=== PATIENT | male | born 1935 | race Caucasian/White ===

== ENCOUNTER 2018-09-18 05:51 | Inpatient (IN) | payer OTHER ==
[2018-09-18] MEDS ORDERED: ONDANSETRON 4 MG/2 ML VIAL IVP ONE (06:04)
[2018-09-18] MEDS ORDERED: NS 1,000 ML IV ONE (06:04)
[2018-09-18] MEDS ORDERED: HYDROmorphONE/DILAUDID 2 MG/ML INJ IVP ONE (06:14)
[2018-09-18] MEDS ORDERED: KETOROLAC 15 MG/1 ML SDV IVP ONE (06:14)
--- NOTE | 2018-09-18 06:19 | EDPHY ---
H & P <James Altman - Last Filed: 09/18/18 09:21> Stated Complaint: l flank pain Source: Patient Exam Limitations: No limitations - Personal History Current Tetanus/Diphtheria Vaccine: No Current Tetanus Diphtheria and Acellular Pertussis (TDAP): No - Medical/Surgical History Hx Asthma: No Hx Chronic Respiratory Disease: No Hx Diabetes: No Hx Cardiac Disease: No Hx Renal Disease: No Hx Cirrhosis: No Hx Alcoholism: No Hx HIV/AIDS: No Hx Splenectomy or Spleen Trauma: No Other PMH: kidney stones. appy - Social History Smoking Status: Never smoked <Jasmyne Salazar - Last Filed: 09/19/18 00:41> Time Seen by Provider: 09/18/18 06:04 HPI/ROS: HPI The patient presents with left-sided flank and left lower quadrant pain which began a few hours ago while at rest. Pain started slowly though has become more severe and is now rated as an 8/10. It is not associated with any dysuria or hematuria. It feels like his prior renal colic. He does have a history of right-sided ureterolithiasis about 1 month ago while in [place]. He had laser lithotripsy performed with good result and was told that his left kidney had stones as well. He has some nausea and vomiting. REVIEW OF SYSTEMS 10 systems were reviewed and negative with the exception of the elements mentioned in the history of present illness. PMHx: Prior renal colic right-sided, hyperlipidemia, status post appendicitis Soc Hx: Here with his PHYSICAL General Appearance: Alert, no distress Eyes: Pupils equal and round no pallor or injection ENT, Mouth: Mucous membranes moist Respiratory: There are no retractions, lungs are clear to auscultation Cardiovascular: Regular rate and rhythm Gastrointestinal: Abdomen is soft and left lower quadrant tenderness, mild left flank tenderness,, no masses, bowel sounds normal Neurological: A&O, moves all extremities Skin: Warm and dry, no rashes Musculoskeletal: Neck is supple non tender Extremities: symmetrical, full range of motion Psychiatric: Patient is oriented X 3, there is no agitation (Jasmyne Salazar) Constitutional: Initial Vital Signs Temperature (C) 36.4 C 09/18/18 05:57 Heart Rate 70 09/18/18 05:57 Respiratory Rate 18 09/18/18 05:57 Blood Pressure 208/95 H 09/18/18 05:57 O2 Sat (%) 97 09/18/18 05:57 O2 Delivery Mode Room Air Allergies/Adverse Reactions: No Known Allergies Allergy (Verified 09/18/18 08:13) Home Medications: Medication Instructions Recorded Acetaminophen [Tylenol ES 500 mg 1,000 mg PO Q6 PRN 09/18/18 (*)] Ascorbic Acid [Vitamin C 500 mg 500 mg PO DAILY 09/18/18 (*)] Aspirin [Aspirin 81mg (*)] 81 mg PO HS 09/18/18 Cholecalciferol Vit D3 [Vitamin D3 1,000 units PO DAILY 09/18/18 (*)] Cyanocobalamin [Vitamin B12 (*)] 1,000 mcg PO DAILY 09/18/18 Finasteride [Proscar 5 MG (*)] 5 mg PO DAILY 09/18/18 Herbals/Supplements -Info Only 1 ea PO DAILY 09/18/18 Lovastatin 20 mg PO HS 09/18/18 Tamsulosin HCl [Flomax 0.4 MG (*)] 0.4 mg PO HS 09/18/18 Medical Decision Making Consult/Admit Bed Type: Orellanageorgette Avalos 8am <James Altman - Last Filed: 09/18/18 09:21> - Diagnostics Imaging: Discussed imaging studies w/ call center trainer Radiologist <Jasmyne Salazar - Last Filed: 09/19/18 00:41> Differential Diagnosis: 83-year-old man with known nephrolithiasis presents with several hours of left- sided flank and left lower quadrant pain which began at rest and is associated with nausea and vomiting. Here, he is quite hypertensive, I suspect pain is a contributing factor, he has left-sided flank and left lower quadrant tenderness. Plan for IV fluids, Zofran, Toradol, Dilaudid. Will obtain basic labs including urinalysis and perform CT scan. Differential diagnosis includes ureterolithiasis, ruptured AAA, pyelonephritis. Patient CT scan demonstrates obstructive left-sided stones. UA raises suspicion for infection. Because of this, I feel he should be admitted to the hospital for further care. Dr Altman has discussed the case with the hospitalist Annmarie Orellana. (Jasmyne Salazar) Other Provider: Antibiotics and urine culture ordered by Dr. Salazar. Hospitalist and urologist consulted by myself, admission. Discussed with [facility] for urology at 817; will have [place] urology consult today , for obstructive uropathy and pyuria. (James Altman) - Data Points Laboratory Results: Laboratory Results 09/18/18 06:10 09/18/18 06:10 Medications Given: Ascorbic Acid (Vitamin C) 500 mg PO DAILY MOLLY Stop: 03/17/19 08:59 Last Admin: 09/18/18 10:10 Dose: 500 mg Aspirin (Aspirin) 81 mg PO HS MOLLY Stop: 03/17/19 20:59 Last Admin: 09/18/18 21:43 Dose: 81 mg Cholecalciferol (Vitamin D) 1,000 units PO DAILY MOLLY Stop: 03/17/19 08:59 Last Admin: 09/18/18 10:10 Dose: 1,000 units Finasteride (Proscar) 5 mg PO DAILY MOLLY Stop: 03/17/19 08:59 Last Admin: 09/18/18 10:10 Dose: 5 mg Ketorolac Tromethamine (Toradol) 15 mg IVP Q6HRS PRN PRN Reason: Pain, Breakthrough Stop: 09/23/18 11:59 Last Admin: 09/18/18 16:34 Dose: 15 mg Tamsulosin HCl (Flomax) 0.4 mg PO HS MOLLY Stop: 03/17/19 20:59 Last Admin: 09/18/18 21:42 Dose: 0.4 mg Vitamin B Complex (Vitamin B12) 1,000 mcg PO DAILY MOLLY Stop: 03/17/19 08:59 Last Admin: 09/18/18 10:10 Dose: 1,000 mcg Discontinued Medications Hydromorphone HCl (Dilaudid) 0.5 mg IVP EDNOW ONE Stop: 09/18/18 06:15 Last Admin: 09/18/18 06:17 Dose: 0.5 mg Sodium Chloride (Ns) 1,000 mls @ 0 mls/hr IV ONCE ONE; Wide Open PRN Reason: Protocol Stop: 09/18/18 06:05 Last Admin: 09/18/18 06:10 Dose: 1,000 mls Ceftriaxone Sodium/Dextrose (Rocephin 1 Gm (Premix)) 50 mls @ 100 mls/hr IV EDNOW ONE PRN Reason: Protocol Stop: 09/18/18 08:06 Last Admin: 09/18/18 08:10 Dose: 50 mls Dextrose/Sodium Chloride (D5w Ns) 1,000 mls @ 75 mls/hr IV CONT MOLLY Stop: 09/19/18 00:34 Last Admin: 09/18/18 12:37 Dose: 1,000 mls Ketorolac Tromethamine (Toradol) 15 mg IVP EDNOW ONE Stop: 09/18/18 06:15 Last Admin: 09/18/18 06:17 Dose: 15 mg Ondansetron HCl (Zofran) 4 mg IVP EDNOW ONE Stop: 09/18/18 06:05 Last Admin: 09/18/18 06:18 Dose: 4 mg Departure <James Altman - Last Filed: 09/18/18 09:21> <Jasmyne Salazar - Last Filed: 09/19/18 00:41> - Departure Disposition: [facility] Inpatient Acute Clinical Impression: Ureterolithiasis Urinary tract infection Qualifiers: Urinary tract infection type: site unspecified Hematuria presence: with hematuria Qualified Code(s): N39.0 - Urinary tract infection, site not specified Condition: Fair
[2018-09-18 06:43] LABS: PLATELET COUNT 175 10^3/uL (150-400)
[2018-09-18] MEDS ORDERED: ONDANSETRON 4 MG/2 ML VIAL IVP PRN (08:24)
[2018-09-18] MEDS ORDERED: ONDANSETRON DISINTEGRATING 4 MG TAB PO PRN (08:24)
[2018-09-18] MEDS ORDERED: Herbals/Supplements -Info Only PO SCH (09:00)
[2018-09-18] MEDS: FINASTERIDE 5 MG TAB PO SCH (10:10)
[2018-09-18] MEDS: CYANO/VITAMIN B12 1000 MCG TAB PO SCH (10:10)
[2018-09-18] MEDS: ASCORBIC ACID 500 MG TAB PO SCH (10:10)
[2018-09-18] MEDS: CHOLECALCIFEROL VIT D3 1,000 UNITS TAB PO SCH (10:10)
[2018-09-18] MEDS ORDERED: KETOROLAC 15 MG/1 ML SDV IVP PRN (10:26)
[2018-09-18] MEDS ORDERED: D5W NS 1,000 ML IV SCH (11:15)
--- NOTE | 2018-09-18 11:27 | GHP ---
[f rep st] HISTORY AND PHYSICAL DATE OF ADMISSION: 09/18/2018 CHIEF COMPLAINT: Left flank pain. HISTORY OF PRESENT ILLNESS: A pleasant 83-year-old male with hyperlipidemia and recent right-sided k idney stones that were removed by laser in [place]. He was down there vacationing in [facility]. Underwent the procedure with stent placement. He reports having a urinary infection at that time. They did inform him that he did have kidney stones on the left side, but did not warrant interventio n. This morning at 1 a.m. he developed crampy left flank pain with mild emesis. He denies fevers, chill s, or sweats. Reports mild dysuria. No diarrhea. CT showed multiple left ureteral stones causing r enal obstruction. REVIEW OF SYSTEMS: I completed a 10-point review of systems, negative except as noted in HPI. PAST MEDICAL HISTORY: Hyperlipidemia. PAST SURGICAL HISTORY: Appendectomy, recent laser removal of right kidney stones, and left rotator c uff surgery. SOCIAL HISTORY: Lives in [place] part-time and part-time in [facility]. . Occasional w ine. No tobacco or illicits. FAMILY HISTORY: Father with kidney and liver issues. ALLERGIES: None. HOME MEDICATIONS: 1. Herbal supplements. 2. Vitamin B12. 3. Vitamin D3. 4. Vitamin C. 5. Tylenol as needed. 6. Flomax. 7. Lovastatin 20 mg at bedtime. 8. Finasteride 5 mg. 9. Aspirin 81 mg. PHYSICAL EXAMINATION: VITAL SIGNS: Temperature 36.4, blood pressure 172/72, heart rate in the 60s, respirations 16, 92% on room air. GENERAL: He is well appearing, in no acute distress. HEENT: PER RLA. Moist mucous membranes. CV: Regular rate and rhythm. LUNGS: Clear. ABDOMEN: Soft, nontender , nondistended. : No River. No suprapubic or flank pain. Flank pain on my exam. NEUROLOGIC: 2 through 12 intact. PSYCH: Alert and oriented x3. LABORATORY DATA: WBC 5, hemoglobin 11, hematocrit 33, platelets 175. Sodium 140, potassium 4.6, chl oride 106, carbon dioxide 21, BUN 19, creatinine is 1.1 (baseline 0.9). UA: +3 leuk, [address] abdomen and pelvis: Multiple left ureteral stones causing renal obstruction. ASSESSMENT/PLAN: 1. Left ureteral stone causing obstruction. Dr. Farooq with Urology will evaluate. Will treat for c omplicated urinary tract infection with dysuria and stones. IV ceftriaxone. Urine culture pending. He is nontoxic. No evidence of sepsis. 2. Hyperlipidemia, statin. 3. Normocytic anemia. No evidence of bleeding. 4. DVT prophylaxis, SCDs. DISPOSITION: Observation admission, warranting IV fluids, antibiotics, awaiting urologic consultbrenneno doe Mcdaniel #: [id number]/[id number]
--- NOTE | 2018-09-18 14:12 | GCON ---
[f rep st] CONSULTATION DATE OF CONSULTATION: 09/18/2018 REASON FOR CONSULT: Ureteral stones. HPI: This is a pleasant 83-year-old male who presents with left-sided flank pain to the emergency ro om. He recently had right-sided kidney stones removed by what sounds like ureteroscopy in [place]. Dario york had a stent at that time, which has since been removed and reports an associated infection with the procedure and the stent. He also has a history of having kidney stones about 10-12 years ago that w ere historically treated by Dr. Ramos. Otherwise, he has a history of hyperlipidemia and known BPH. His symptoms began acutely this morning at 1 a.m. Left-sided pain that was crampy. Denying fever, chills, or sweats. Mild dysuria and CT shows 2-3 left ureteral stones with hydro. REVIEW OF SYSTEMS: 10-point review of systems negative except as mentioned in HPI. PAST MEDICAL HISTORY: Hyperlipidemia, BPH, kidney stones. SURGICAL HISTORY: Appendectomy, ureteroscopy, left rotator cuff. SOCIAL: Lives part-time in [place], part-time in [facility]. . Occasional wine. No to [employer]. Daughter is a nurse in [place]. FAMILY HISTORY: Father with kidney issues. ALLERGIES: None. HOME MEDICATIONS: Herbal supplements, B12, D3, C, Tylenol, Flomax, lovastatin, finasteride, aspirin. PHYSICAL EXAM: VITAL SIGNS: Blood pressure 138/71, heart rate 65, respirations 16, O2 93 on room ai r, temperature 36.4. GENERAL: This is a well-developed, well-nourished male, in no acute distress. HEENT: Normocephalic, atraumatic. Extraocular movements intact. NECK: Supple. No lymphadenopath y. Trachea midline. RESPIRATORY: No accessory respiratory muscle use. CARDIAC: Regular rate and rhythm. No obvious JVD. No lower extremity edema. GI: Abdomen is soft, nondistended, nontender to palpation. No hepatosplenomegaly. : No CVA tenderness. No bladder distention. Phallus with no rmal urethral meatus. Testicles descended bilaterally. Normal on exam. INTEGUMENT: No obvious colton hes or lesions. MUSCULOSKELETAL: Patient examined while supine but moving upper extremities and low er extremities without difficulty. NEUROLOGIC: Alert and oriented. PSYCH: Affect appropriate to s ituation. LABS: White blood cell count 5.29, hemoglobin 11.1, hematocrit 33.5, platelets 175. Chemistry: Sod ium 140, potassium 4.6, chloride 105, carbon dioxide 21, anion gap 14, BUN 19, creatinine 1.0, glucos e 165, calcium 9.4. Urinalysis was positive for blood, leuks, and nitrates. CT of the abdomen and p drew, I have reviewed this personally, which shows no stones on the right. No obvious hydronephrosi s. He has 2-3 stones in the left ureter, largest is a distal left ureteral stone measuring 11 x 7 mm with a possible 3 mm stone right superior to that left stone, and then a 5-1/2 x 4-1/2 mid left uret eral stone with moderate hydronephrosis. He also has an enlarged prostate. ASSESSMENT AND PLAN: Ureteral stones, hydronephrosis. I have discussed the diagnosis, along with th e possible management options with the patient, his and his daughter, which would include surgic al removal of stones, stenting, nephrostomy tube placement or observation. Given patient's robust ap pearance with normal vital signs and normal white blood cell count, we will continue with antibiotics right now for possible early urinary tract infection and plan for ureteroscopy to treat 2-3 stones t omorrow with stent placement. Risks and benefits have been discussed in detail with the patient and they agree for procedure. /[id number]/MODL
[2018-09-18] MEDS: TAMSULOSIN HCL 0.4 MG CAP PO SCH (21:42)
[2018-09-18] MEDS: ASPIRIN 81 MG CHEWABLE TAB PO SCH (21:43)
[2018-09-19] MEDS: PRAVASTATIN SODIUM 20 MG TAB PO SCH (08:40)
[2018-09-19] MEDS: FINASTERIDE 5 MG TAB PO SCH (08:40)
[2018-09-19] MEDS: ASCORBIC ACID 500 MG TAB PO SCH (08:42)
[2018-09-19] MEDS: CHOLECALCIFEROL VIT D3 1,000 UNITS TAB PO SCH (08:43)
[2018-09-19] MEDS: CYANO/VITAMIN B12 1000 MCG TAB PO SCH (08:43)
[2018-09-19] MEDS ORDERED: LR 1,000 ML IV ONE (09:11)
--- NOTE | 2018-09-19 09:38 | PDANEPAE ---
ANE History of Present Illness 83 year old with kidney stones ANE Past Medical History - Pulmonary History Hx Sleep Apnea: No Sleep Apnea Screening Result - Last Documented: Negative - Endocrine History Hx Diabetes: No ANE Review of Systems Review of systems is: negative Review of Systems: ANE Patient History - Allergies Allergies/Adverse Reactions: No Known Allergies Allergy (Verified 09/18/18 08:13) - Home Medications Home Medications: Acetaminophen [Tylenol ES 500 mg (*)] 1,000 mg PO Q6 PRN 09/18/18 [Last Taken ] Ascorbic Acid [Vitamin C 500 mg (*)] 500 mg PO DAILY 09/18/18 [Last Taken Unknown] Aspirin [Aspirin 81mg (*)] 81 mg PO HS 09/18/18 [Last Taken 09/17/18] Cholecalciferol Vit D3 [Vitamin D3 (*)] 1,000 units PO DAILY 09/18/18 [Last Taken Unknown] Cyanocobalamin [Vitamin B12 (*)] 1,000 mcg PO DAILY 09/18/18 [Last Taken Unknown ] Finasteride [Proscar 5 MG (*)] 5 mg PO DAILY 09/18/18 [Last Taken 09/17/18] Herbals/Supplements -Info Only 1 ea PO DAILY 09/18/18 [Last Taken Unknown] Lovastatin 20 mg PO HS 09/18/18 [Last Taken 09/17/18] Tamsulosin HCl [Flomax 0.4 MG (*)] 0.4 mg PO HS 09/18/18 [Last Taken 09/17/18] - NPO status NPO Since - Liquids (Date): 09/19/18 NPO Since - Liquids (Time): 00:00 NPO Since - Solids (Date): 09/19/18 NPO Since - Solids (Time): 00:00 - Anes Hx Anes Hx: no prior problems - Smoking Hx Smoking Status: Never smoked ANE Labs/Vital Signs - Labs Result Diagrams: 09/19/18 08:00 09/19/18 08:00 - Vital Signs Blood Pressure: 141/70 Heart Rate: 85 Respiratory Rate: 18 O2 Sat (%): 92 Height: 157.48 cm Weight: 58.967 kg ANE Physical Exam - Airway Neck exam: FROM Mallampati Score: Class 1 Mouth exam: normal dental/mouth exam - Pulmonary Pulmonary: no respiratory distress - Cardiovascular Cardiovascular: regular rate and rhythym - ASA Status ASA Status: II ANE Anesthesia Plan Anesthesia Plan: GA w LMA
--- NOTE | 2018-09-19 10:02 | ASMTCMCOM ---
CM Note CM Note Notes: Patient admitted for tx of L ureteral stone and UTI w dysuria. Per H&P, he recently underwent R sided kidney stone removal by laser in [place]. 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 I do not anticipate any d/c needs, but CM will follow in case he has a procedure that would necesitate a funeral home attendant. Date Signed: 09/19/2018 10:02 AM Electronically Signed By:Jennifer Anderson RN
[2018-09-19] MEDS ORDERED: LIDOCAINE 2% JELLY 20 ML (UROJECT) ONE (10:43)
[2018-09-19] MEDS ORDERED: IOPAMIDOL (ISOVUE-M 300) 15 ML VIAL ONE ×2 (10:43→12:05)
[2018-09-19] MEDS ORDERED: PROPOFOL 200 MG/20 ML VIAL ONE (11:28)
[2018-09-19] MEDS ORDERED: fentaNYL 100 MCG/2 ML INJ ONE ×3 (11:35→12:31)
--- NOTE | 2018-09-19 12:47 | POSTOPPROG ---
Post Op Note Date of Operation: 09/19/18 Surgeon: Yolette Willingham (# [id number]) Anesthesia: GET(General Endotracheal) Pre-op Diagnosis: Multiple left ureteral calculi Post-op Diagnosis: Multiple left ureteral calculi Procedure: Cysto, left ureteroscopy w/ laser litho., stent placement Findings: See op note Inf/Abcess present in the surg proc area at time of surgery?: No EBL: Minimal Complications: None Drains: Other (4.7 Fr. multilength left ureteral stent) Specimen(s): Left ureteral calculus fragments
[2018-09-19] MEDS ORDERED: HYDROmorphONE/DILAUDID 1 MG/ML INJ IVP PRN (12:56)
[2018-09-19] MEDS ORDERED: HYDROCODONE/APAP 5/325 TAB PO PRN (12:56)
[2018-09-19] MEDS ORDERED: fentaNYL 100 MCG/2 ML INJ IVP PRN (12:58)
[2018-09-19] MEDS ORDERED: NALOXONE HCL 0.4 MG/ML INJ IVP PRN (12:58)
[2018-09-19] MEDS ORDERED: ONDANSETRON 4 MG/2 ML VIAL IVP PRN (12:58)
[2018-09-19] MEDS ORDERED: PROMETHAZINE HCL 25 MG/ML INJ IVP PRN (12:58)
--- NOTE | 2018-09-19 13:00 | POSTANESTH ---
Post Anesthetic Evaluation Cardiovascular Status: Normal, Stable Respiratory Status: Normal, Stable Level of Consciousness/Mental Status: Can Participate in Eval Pain Control: Adequate, Prn Tx Ordered Nausea/Vomiting Control: Adequate, Prn Tx Ordered Complications Possibly Related to Anesthesia: None Noted
--- NOTE | 2018-09-19 15:07 | HOSPPROG ---
Hospitalist Progress Note Assessment/Plan: #Left Ureteral Stones -s/p stent 09/19 #UTI-Pseudomona -change abx to Zosyn, ID to consult -await sensitivities #Hydronephrosis -Cr ok #Anemia, macrocytic: w/u ordered #BPH: home meds #HLD: cont statin cont inpatient ID to see, likely tomorrow restart IVF Subjective: no cp or sob. no n/v Objective: Vital Signs Temp Pulse Resp BP Pulse Ox 36.9 C 76 16 120/64 96 09/19/18 13:51 09/19/18 13:51 09/19/18 13:51 09/19/18 13:51 09/19/18 13:51 Laboratory Results 09/19/18 08:00 09/19/18 08:00 09/18/18 09/19/18 09/20/18 05:59 05:59 05:59 Intake Total 1400 800 Output Total 1100 0 Balance 300 800 - Physical Exam Constitutional: no apparent distress Eyes: PERRL, EOMI Ears, Nose, Mouth, Throat: moist mucous membranes, hearing normal, ears appear normal Cardiovascular: regular rate and rhythym, No edema Respiratory: no respiratory distress, no rales or rhonchi, clear to auscultation Gastrointestinal: normoactive bowel sounds, No distension Skin: warm Neurologic: AAOx3 Psychiatric: interacting appropriately, not anxious, not encephalopathic Lymph, Heme, Immunologic: No petechiae ICD10 Worksheet Patient Problems: Problems Problem Status Onset Ureterolithiasis Acute Urinary tract infection Acute
[2018-09-19] MEDS: PIPERACILLIN/TAZO 4.5 GM/DEX 100 ML IV SCH ×2 (16:24→21:56)
[2018-09-19] MEDS: NS 1,000 ML IV SCH (16:24)
[2018-09-19] MEDS: ACETAMINOPHEN 325 MG TAB PO PRN ×2 (17:41→22:55)
[2018-09-19] MEDS ORDERED: PIPERACILLIN/TAZO 4.5 GM/DEX 100 ML IV SCH (18:00)
--- NOTE | 2018-09-19 19:41 | GOP ---
[f rep st] OPERATIVE REPORT DATE OF OPERATION: 09/19/2018 SURGEON: Yolette Willingham MD ANESTHESIA: Laryngeal mask. PREOPERATIVE DIAGNOSIS: 1. Multiple left ureteral calculi. 2. Urinary tract infection. POSTOPERATIVE DIAGNOSIS: 1. Multiple left ureteral calculi. 2. Urinary tract infection. PROCEDURES PERFORMED: Cystourethroscopy, left retrograde pyelography, left ureteroscopy with holmium laser lithotripsy & basket extraction of multiple calculi, left ureteral stent placement (4.7 Belarusian multilength). FINDINGS: Multiple large calculi in the distal left ureter with hydronephrosis proximally. No intraoperative evidence of overtly purulent urine from the left kidney nor left ureter. SPECIMENS: Left ureteral calculus fragments. ESTIMATED BLOOD LOSS: Minimal. INDICATIONS: This gentleman was admitted to the hospital recently with obstructing ureteral calculi and also a urinary tract infection. He has not exhibited any indication of sepsis during the hospitalization; therefore, I decided to proceed with intraoperative ureteroscopy. The indications for the procedures, as well as potential risks and complications, were discussed with the patient preoperatively. He appeared to understand, his questions were answered, and he wished to proceed. Written informed surgical consent was thereafter obtained. DESCRIPTION OF PROCEDURE: The patient was brought to the operating room and administered laryngeal mask anesthesia. He was carefully placed in the dorsal lithotomy position on the cystoscopic table. The genital area sterilely prepped with Betadine scrub and paint then draped in the usual sterile fashion. Cystoscopy was performed with 30-degree and 70-degree lenses through a 22- Belarusian sheath. Anterior urethra revealed no abnormalities. Posterior urethra revealed significant circumferential BPH with a prominent median lobe encroaching onto the trigone. The bladder was moderately to heavily trabeculated. Ureteral orifices were normal in regards to shape and position along the trigone. No other areas of abnormal erythema, tumors, nor foreign bodies were appreciated. I then used a 5-Belarusian open-ended ureteral catheter to intubate the left ureteral orifice. Upon doing so, I gently injected a small amount of contrast. Using fluorscopic guidance, there was significant J hooking of the distal ureter along with a large calculus in the distal ureter, with moderate proximal hydronephrosis and hydroureter. There were possibly 2 or 3 other calculi present in the distal ureter. I then gently passed a 0.035 inch hydrophilic guidewire through the ureteral catheter and advanced it into the renal collecting system as noted fluoroscopically. The ureteral catheter was then removed while keeping the guidewire in place. At this point, I did not appreciate any purulent material exiting from the left ureter; therefore, I felt it was safe to proceed with ureteroscopy. I dilated the distal ureter with a 4 cm balloon by maintaining a pressure of 16 atmospheres for about 4 minutes. The balloon dilator and cystoscope were then removed while keeping the guidewire in place. Semi-rigid ureteroscopy was performed alongside the guidewire. There were several calculi seen in the distal ureter, the largest being approximately 1 cm. I used a 365 micron holmium laser fiber to fragment these calculi into as small pieces as possible. None of the pieces at the end of the case appeared to be larger than 2 mm to 3 mm. I tried to extract as many of these as I could with a Nitinol 0 tip stone basket. There was a fair amount of inflammation and edema involving the distal left ureteral mucosa as a result of the calculi, and probably related to some degree from a possible overlying urinary tract infection. I decided to minimize any further manipulation of the ureter at this time, and there were some small stone fragments left behind, which I felt confident would drain around the indwelling ureteral stent. The ureteroscope was removed and the cystoscope was back-loaded over the guidewire. A 4.7-Belarusian multi length hydrophilic ureteral stent was advanced over the guidewire until it was properly positioned as seen fluoroscopically in the kidney and cystoscopically in the bladder. The bladder was then drained of all return, which was relatively clear. The instruments were removed. Because of the patient's large prostate, I decided to place an 18-Belarusian coude tip catheter. This was placed to gravity drainage without complication and connected to bag drainage. The patient was then awakened, transferred to his bed, then taken back to the recovery room. He tolerated the procedure well overall. COMPLICATIONS: None. DISPOSITION: He was transferred to the recovery room in stable condition. He will need to be monitored at least overnight to ensure he does not become septic following today's procedure. I will then have his River catheter removed in the morning as well. He will need to maintain his indwelling left ureteral stent for about 3 weeks, and I will have him return to the office at that time with a KUB. /[id number]/MODL MTDD
[2018-09-19] MEDS: ASPIRIN 81 MG CHEWABLE TAB PO SCH (21:55)
[2018-09-19] MEDS: TAMSULOSIN HCL 0.4 MG CAP PO SCH (21:56)
[2018-09-20] MEDS: PIPERACILLIN/TAZO 4.5 GM/DEX 100 ML IV SCH ×4 (04:01→22:18)
[2018-09-20 04:45] LABS: PLATELET COUNT 122 10^3/uL (150-400)
[2018-09-20] MEDS: CYANO/VITAMIN B12 1000 MCG TAB PO SCH (09:06)
[2018-09-20] MEDS: CHOLECALCIFEROL VIT D3 1,000 UNITS TAB PO SCH (09:06)
[2018-09-20] MEDS: ASCORBIC ACID 500 MG TAB PO SCH (09:06)
[2018-09-20] MEDS: FINASTERIDE 5 MG TAB PO SCH (09:06)
[2018-09-20] MEDS: PRAVASTATIN SODIUM 20 MG TAB PO SCH (09:06)
--- NOTE | 2018-09-20 09:10 | PDMN ---
Medical Necessity Medical necessity: Change to IP, as of 09/19/18, per & MCG M-320; los >2 mn for ongoing management of ureteral stones s/p stent w/UTI; requiring further monitoring, ID consult, IV abx & IVFs; comorbid advanced age
[2018-09-20] MEDS: ACETAMINOPHEN 325 MG TAB PO PRN ×2 (10:47→22:20)
--- NOTE | 2018-09-20 14:23 | HOSPPROG ---
Hospitalist Progress Note Assessment/Plan: #Left Ureteral Stones -s/p stent 09/19 #UTI-Pseudomonas -cont Zosyn -D/w ID, they will see today -await sensitivities #Hydronephrosis -Cr elevated -cont IVF #Anemia, macrocytic: w/u ordered #BPH: home meds #HLD: cont statin #Encephalopathy, acute, metabolic cont inpatient ID to see today cont IVF Subjective: fever last night, somewhat confused. knows he is in the hospital and why. Objective: Vital Signs Temp Pulse Resp BP Pulse Ox 37.7 C 91 16 119/57 L 89 L 09/20/18 11:20 09/20/18 11:20 09/20/18 11:20 09/20/18 11:20 09/20/18 11:20 Laboratory Results 09/20/18 04:20 09/20/18 04:20 09/19/18 09/20/18 09/21/18 05:59 05:59 05:59 Intake Total 1553 Output Total 1000 350 Balance 553 -350 - Physical Exam Constitutional: no apparent distress Eyes: PERRL Ears, Nose, Mouth, Throat: moist mucous membranes, hearing normal Cardiovascular: regular rate and rhythym, No edema Respiratory: no respiratory distress, no rales or rhonchi, clear to auscultation Gastrointestinal: normoactive bowel sounds, soft, non-tender abdomen Skin: warm Musculoskeletal: generalized weakness Neurologic: AAOx3 Psychiatric: interacting appropriately Lymph, Heme, Immunologic: No petechiae ICD10 Worksheet Patient Problems: Problems Problem Status Onset Ureterolithiasis Acute Urinary tract infection Acute
--- NOTE | 2018-09-20 15:06 | PDCONSULT ---
Hospice Director Note: Infectious Diseases Consult Note Impression: 83-year-old man with Pseudomonas aeruginosa urinary tract infection complicating multiple nephrolithiasis status post extraction. Continues to have some cognitive changes according to family with ongoing fevers. Will continue with piperacillin/tazobactam until susceptibilities return. His recent surgical procedure in [place] makes predicting susceptibilities difficult without knowing the antibiotic gram from facility had the procedure performed. 1. Pyelonephritis, secondary to Pseudomonas aeruginosa 2. Status post removal of left-sided ureteral stones 09/19/2018 3. BPH 4. Status post removal of right-sided kidney stones and [place] in 2019 5. Acute kidney injury, likely post procedure Plan: 1. Continue Zosyn 2. Follow susceptibility results expect by tomorrow 3. Will plan oral step-down therapy if an oral agent is active 4. Reviewed in detail potential side effects of beta-lactam antibiotics to include: allergy, rash, nausea, antibiotic-associated diarrhea, Clostridioides difficile colitis. Calvin Echavarria MD Infectious Diseases Chief Complaint: Kidney stones Requesting Provider: Dr. Rosales Reason for Referral: Consultation was requested by Dr. Rosales regarding antimicrobial management. HPI: 83-year-old man who presented to the emergency department with left-sided flank pain and left pelvic pain that began on the day of admission. Patient states that he had a planned procedure but family notes that his cognitive function has not returned to baseline. Medical record review shows that he presented with left-sided flank pain and left pelvic pain approximately 1 month after undergoing right-sided laser lithotripsy [place] for nephrolithiasis. He was told at the time that he did have stones on the left side but were not necessary to remove at that time. Since admission he has undergone urologic procedure to extract the large stones in the left ureter. Urine culture from admission has grown Pseudomonas aeruginosa with susceptibilities pending. Family notes that he was treated for urinary tract infection while he was in [place] but do not recall the details the bacteria or the antibiotic course. Since the procedure he states he is feeling better with no further flank or pelvic pain. He has had a fever while inpatient which he has manifested with diaphoresis and chills. Overall he feels much improved in his ambulating around his room as able to fully participate in a discussion, although his family states his cognitive function remains a bit delayed from his usual sharp mentation. Reviewed patient medical records in [facility], and [facility] ([facility] Travel history: Recent trip to [facility] Past Medical History: Recurrent nephrolithiasis Past Surgical History: Right-sided kidney stone with removal in [place]; ureteroscopy with stone removal 09/19/2018 Social History: Does not use tobacco products; Does not consume marijuana products; Drinks alcohol socially; Does not use any other drugs currently or in the past Family History: No family members with recurrent infections Allergies: No known antibiotic allergies Medications: Reviewed in medical record. ROS: 10 organ systems reviewed; pertinent positives and negatives listed in the HPI, all other organ systems negative. Physical Exam: VS: Reviewed Gen: No acute distress; Breathing comfortably without supplemental oxygen; Able to speak in complete sentences Eyes: No conjunctival injection; No scleral icterus HENT: No gross deformities Neck: No limitation in range of motion Pulm: Audible inspiratory sounds to the bases bilaterally; No wheeze, rhonchi, or rales CV: Normal S1 and S2; Regular rate and rhythm; No murmurs, rubs, or gallops; No lower extremity edema Abd: Not distended; Normo-active bowel sounds; Soft; Non-tender Skin: A full skin exam including exposed bilateral upper extremities, bilateral lower extremities to the knees, face, neck, abdomen, chest, and back performed; Skin intact, warm, with no rash MSK: Joints without erythema or edema; No gross limitation in range of motion Ext: No clubbing or cyanosis Neuro: Awake and alert; delayed responses to questions according to family Psych: Normal mood and affect Labs/Imaging: All microbiology testing (culture and non-culture) reviewed in the medical record. Personally reviewed and interpreted the images of the following radiographs: CT abdomen pelvis from admission showing multiple large left-sided ureteral stones. Medications Generic Name Dose Route Start Last Admin Trade Name Freq PRN Reason Stop Dose Admin Piperacillin/Tazobactam/Dextrose 100 mls @ 200 mls/hr 09/19/18 16:00 10:28 Zosyn (Premix) IV 10/19/18 15:59 100 mls Q6H MOLLY Protocol Discontinued Medications Generic Name Dose Route Start Last Admin Trade Name Freq PRN Reason Stop Dose Admin Piperacillin/Tazobactam/Dextrose 100 mls @ 200 mls/hr 09/19/18 18:00 Zosyn (Premix) IV 10/19/18 17:59 Q6HRS [facility] Protocol Microbiology 09/18/18 06:10 Urine,Clean Catch Urine Culture - Preliminary Pseudomonas Aeruginosa Laboratory Tests 09/18/18 09/18/18 09/18/18 06:10 06:10 06:17 WBC 5.29 Hgb 11.1 L Plt Count 175 Creatinine 1.1 Urine WBC 50-182 H Urine Bacteria TRACE H 09/19/18 09/19/18 09/20/18 08:00 08:00 04:20 WBC 3.99 4.12 Hgb 9.1 L 8.8 L Plt Count 148 L 122 L Creatinine 1.1 Urine WBC Urine Bacteria 09/20/18 04:20 WBC Hgb Plt Count Creatinine 1.4 H Urine WBC Urine Bacteria Ongoing monitoring for antimicrobial toxicity with: CBC, BMP, interval historical information, and interval physical exam. Pvwd-[id number] time with patient: 63 minutes with >50% of [id number] time spent in counseling, patient education, and coordinating care. Counseling provided included the microbiology of Pseudomonas aeruginosa urinary tract infections with probable pyelonephritis, susceptibility patterns of Pseudomonas aeruginosa , expected time to susceptibility results, expected time to resolution, natural history without treatment, and side effects of treatment.
[2018-09-20] MEDS: TAMSULOSIN HCL 0.4 MG CAP PO SCH (22:17)
[2018-09-21] MEDS: NS 1,000 ML IV SCH (03:59)
[2018-09-21] MEDS: PIPERACILLIN/TAZO 4.5 GM/DEX 100 ML IV SCH (03:59)
[2018-09-21 04:52] LABS: PLATELET COUNT 112 10^3/uL (150-400)
[2018-09-21] MEDS: CYANO/VITAMIN B12 1000 MCG TAB PO SCH (09:05)
[2018-09-21] MEDS: ASCORBIC ACID 500 MG TAB PO SCH (09:05)
[2018-09-21] MEDS: CHOLECALCIFEROL VIT D3 1,000 UNITS TAB PO SCH (09:05)
[2018-09-21] MEDS: PRAVASTATIN SODIUM 20 MG TAB PO SCH (09:05)
[2018-09-21] MEDS: FINASTERIDE 5 MG TAB PO SCH (09:05)
[2018-09-21] MEDS ORDERED: NS 1,000 ML IV SCH (10:30)
[2018-09-21] MEDS: PIPERACILLIN/TAZO 3.375 GM/DEX 50 ML IV SCH ×3 (11:22→22:47)
--- NOTE | 2018-09-21 14:09 | HOSPPROG ---
Hospitalist Progress Note Assessment/Plan: #Left Ureteral Stones -s/p stent 09/19 #UTI-Pseudomonas -cont Zosyn -ID following -await sensitivities #Hydronephrosis -Cr elevated -cont IVF -check FENA #Anemia, macrocytic: w/u ordered #BPH: home meds #HLD: cont statin #Encephalopathy, acute, metabolic, resolving cont inpatient cont abx, await sensitivities cont IVF follow Hgb, as its been trending down holding aspirin Subjective: no cp or sob. confusion is better. good urine output Objective: Vital Signs Temp Pulse Resp BP Pulse Ox 37.4 C 81 16 115/64 93 09/21/18 12:00 09/21/18 12:00 09/21/18 12:00 09/21/18 12:00 09/21/18 12:00 Laboratory Results 09/21/18 04:10 09/21/18 04:10 09/20/18 09/21/18 09/22/18 05:59 05:59 05:59 Intake Total 1553 1776 Output Total 1000 1200 350 Balance 553 576 -350 - Physical Exam Constitutional: no apparent distress Eyes: PERRL Ears, Nose, Mouth, Throat: moist mucous membranes, hearing normal Cardiovascular: regular rate and rhythym, No edema Respiratory: no respiratory distress, no rales or rhonchi, clear to auscultation Gastrointestinal: normoactive bowel sounds, soft, non-tender abdomen Skin: warm Neurologic: AAOx3 Psychiatric: interacting appropriately, not anxious, not encephalopathic Lymph, Heme, Immunologic: No petechiae ICD10 Worksheet Patient Problems: Problems Problem Status Onset Ureterolithiasis Acute Urinary tract infection Acute
--- NOTE | 2018-09-21 14:31 | PCMIDPN ---
Assessment/Plan: Assessment: 83-year-old man with Pseudomonas aeruginosa pyelonephritis complicating multiple nephrolith the sees status post extraction. Mental status is return to normal and clinically is doing for a while without fevers. Kidney function may have plateaued with a creatinine of 1.5, piperacillin/ tazobactam dose adjusted to reflect a change in kidney function. Anticipate oral levofloxacin at discharge. 1. Pyelonephritis, secondary to Pseudomonas aeruginosa 2. Status post removal left-sided ureteral stones 09/19/2018 3. BPH 4. Status post removal of right-sided kidney stones in [place] July 2018 5. Acute kidney injury, likely postprocedural Plan: 1. Continue renally dose adjusted piperacillin/tazobactam for Pseudomonas aeruginosa 2. Dosing of levofloxacin if discharge today would be 750 mg x1 dose followed by 250 mg p.o. Daily x6 additional days; this will change of kidney function is improved tomorrow 3. Reviewed in detail potential side effects of beta-lactam antibiotics to include: allergy, rash, nausea, antibiotic-associated diarrhea, Clostridioides difficile colitis. Calvin Echavarria MD Infectious Diseases 09/21/18 14:27 Subjective: No fever or chills in the past 24-hours. Tolerating oral diet with solids and liquids. No diarrhea, nausea, or other GI symptoms. No rash. Appetite improving. Ambulating without difficulty. Improved since admission but not back to baseline health. Family at bedside states his mental shortness has improved to near baseline. Objective: Vital Signs Temp Pulse Resp BP Pulse Ox 37.4 C 81 16 115/64 93 09/21/18 12:00 09/21/18 12:00 09/21/18 12:00 09/21/18 12:00 09/21/18 12:00 Laboratory Results 09/21/18 04:10 09/21/18 04:10 09/20/18 09/21/18 09/22/18 05:59 05:59 05:59 Intake Total 1553 1776 Output Total 1000 1200 350 Balance 553 576 -350 Medications Generic Name Dose Route Start Last Admin Trade Name Freq PRN Reason Stop Dose Admin Piperacillin/Tazobactam/Dextrose 50 mls @ 100 mls/hr 09/21/18 10:00 09/21/18 11:22 Zosyn 3.375 Gm (Premix) IV 10/21/18 09:59 50 mls Q6H MOLLY Microbiology 09/18/18 06:10 Urine,Clean Catch Urine Culture - Final Pseudomonas Aeruginosa Laboratory Tests 09/19/18 09/19/18 09/20/18 08:00 08:00 04:20 Plt Count 148 L 122 L Absolute Lymphocytes Creatinine 1.1 09/20/18 09/21/18 09/21/18 04:20 04:10 04:10 Plt Count 112 L Absolute Lymphocytes 0.74 L Creatinine 1.4 H 1.5 H Ongoing monitoring for antimicrobial toxicity with: CBC, BMP, interval historical information, and interval physical exam. - Physical Exam General Appearance: no apparent distress, non-toxic EENT: No scleral icterus Respiratory: No respiratory distress, No accessory muscle use Neck: full range of motion, supple Extremities: No inflammation, No erythema Skin: No erythema Neuro/Psych: alert, normal mood/affect, oriented x 3, No confused - Time Spent With Patient Time Spent with Patient: greater than 25 minutes (Discussed with patient and family at bedside details of Pseudomonas aeruginosa pyelonephritis complicating urinary tract stones, need to understand trajectory of kidney function for dosing of oral therapy step-down, expected outcome) Time Spent with Patient: Greater than 25 minutes spent on this patients care, greater than 50% of time spent counseling, educating, and coordinating care regarding the above mentioned plan. ICD10 Worksheet Patient Problems: Problems Problem Status Onset Ureterolithiasis Acute Urinary tract infection Acute
[2018-09-21] MEDS: ACETAMINOPHEN 325 MG TAB PO PRN (19:48)
[2018-09-21] MEDS: TAMSULOSIN HCL 0.4 MG CAP PO SCH (19:48)
[2018-09-22] MEDS: PIPERACILLIN/TAZO 3.375 GM/DEX 50 ML IV SCH ×2 (05:07→09:50)
[2018-09-22] MEDS: FINASTERIDE 5 MG TAB PO SCH (09:50)
[2018-09-22] MEDS: PRAVASTATIN SODIUM 20 MG TAB PO SCH (09:50)
[2018-09-22] MEDS: CHOLECALCIFEROL VIT D3 1,000 UNITS TAB PO SCH (09:50)
[2018-09-22] MEDS: CYANO/VITAMIN B12 1000 MCG TAB PO SCH (09:50)
[2018-09-22] MEDS: ASCORBIC ACID 500 MG TAB PO SCH (09:50)
--- NOTE | 2018-09-22 10:35 | PDIAF ---
- Diagnosis Code Status: Full Code - Medication Management Skilled Nursing Antibiotics: levofloxacin 500mg PO daily [facility] Antibiotic Stop Date: 09/26/18 Discharge Medications: electronically signed and located in the Home Medication List. PICC Care - Routine: N/A - Follow Up Care Current Providers and Referrals: Audelia Francisco MD [Medical Doctor] - As per Instructions Rayna Grijalva MD [Primary Care Provider] - As per Instructions Calvin Echavarria MD [Medical Doctor] - follow up in 1 week
[2018-09-22] MEDS ORDERED: CEPACOL LOZENGE PO PRN (10:51)
--- NOTE | 2018-09-22 11:51 | HOSPPROG ---
Hospitalist Progress Note Assessment/Plan: #Left Ureteral Stones -s/p stent 09/19 #UTI-Pseudomonas -cont Zosyn -ID following -ID to adjust abx per sensitivities #Hydronephrosis #DON -resolved -stop IVF #Pancytopenia, etiology unclear, ?abx related. Repeat labs in a.m. -Hgb: No reported bleeding. Will repeat. Transfuse PRN. Hematuria present -Leukopenia: monitor -Platelets: monitor -thrombocytopenia #BPH: home meds #HLD: cont statin #Encephalopathy, acute, metabolic, resolved cont inpatient cont abx, ID to adjust, likely today stop IVF follow CBC holding aspirin Subjective: feels better overall. no cp or sob. Objective: Vital Signs Temp Pulse Resp BP Pulse Ox 36.3 C 71 16 118/64 94 09/22/18 11:00 09/22/18 11:00 09/22/18 11:00 09/22/18 11:00 09/22/18 11:00 Laboratory Results 09/22/18 04:32 09/22/18 04:32 09/21/18 09/22/18 09/23/18 05:59 05:59 05:59 Intake Total 1776 3608 Output Total 1200 1150 Balance 576 2458 - Physical Exam Constitutional: no apparent distress Eyes: PERRL, EOMI Ears, Nose, Mouth, Throat: moist mucous membranes, hearing normal Cardiovascular: regular rate and rhythym, No edema Respiratory: no respiratory distress, no rales or rhonchi, clear to auscultation Gastrointestinal: normoactive bowel sounds, soft, non-tender abdomen Skin: warm Neurologic: AAOx3 Psychiatric: interacting appropriately, not anxious, not encephalopathic Lymph, Heme, Immunologic: No petechiae ICD10 Worksheet Patient Problems: Problems Problem Status Onset Ureterolithiasis Acute Urinary tract infection Acute
--- NOTE | 2018-09-22 12:05 | PCMIDPN ---
Assessment/Plan: Assessment: 83-year-old man with Pseudomonas aeruginosa pyelonephritis complicating multiple nephrolith the sees status post extraction. Mental status is return to normal and clinically is doing v of therapy. fabiola well without fevers. Now has pancytopenia with leukopenia developing in the setting of thrombocytopenia and anemia that had been present early in admission. His possible that this is a side effect of Zosyn. As he is improved and tolerating oral intake will transition to oral therapy with levofloxacin as planned. As he has had source control with removal of stones will limit therapy to a total of 7 days with 5/2 is the last day of therapy. 1. Pancytopenia, possible side effect of piperacillin/tazobactam 2. Pyelonephritis, secondary to Pseudomonas aeruginosa; improved 3. Status post removal left-sided ureteral stones 09/19/2018 4. BPH 5. Status post removal of right-sided kidney stones in [place] July 2018 6. Acute kidney injury, likely postprocedural; improving Plan: 1. Stop Zosyn 2. Levofloxacin 750 mg p.o. X1 dose today 3. Start levofloxacin 500 mg p.o. Daily x4 additional days starting on 09/23; last dose will be / 4. Reviewed in detail potential side effects of levofloxacin to include: allergy , rash, nausea, antibiotic-associated diarrhea, Clostridioides difficile colitis , tendinopathy (particularly Achilles' tendon), retinopathy, and the quinolone syndrome. Calvin Echavarria MD Infectious Diseases 09/22/18 12:03 Subjective: No fever or chills in the past 24-hours. Tolerating oral diet with solids and liquids. No diarrhea, nausea, or other GI symptoms. No rash. Appetite improving. Ambulating without difficulty. Improved since admission but not back to baseline health. Objective: Vital Signs Temp Pulse Resp BP Pulse Ox 36.3 C 71 16 118/64 94 09/22/18 11:00 09/22/18 11:00 09/22/18 11:00 09/22/18 11:00 09/22/18 11:00 Laboratory Results 09/22/18 04:32 09/22/18 04:32 09/21/18 09/22/18 09/23/18 05:59 05:59 05:59 Intake Total 1776 3608 Output Total 1200 1150 Balance 576 8838 Medications Discontinued Medications Generic Name Dose Route Start Last Admin Trade Name Carli PRN Reason Stop Dose Admin Levofloxacin 750 mg 09/22/18 10:33 Levaquin PO 09/22/18 10:34 ONCE ONE Protocol Microbiology 09/18/18 06:10 Urine,Clean Catch Urine Culture - Final Pseudomonas Aeruginosa 09/19/18 18:10 Blood Blood Culture - Preliminary 09/19/18 17:45 Blood Blood Culture - Preliminary Laboratory Tests 09/21/18 09/22/18 04:10 04:32 WBC 3.91 2.73 L Hgb 8.0 L 7.5 L Plt Count 112 L 111 L Absolute Lymphocytes 0.74 L - Physical Exam General Appearance: no apparent distress, non-toxic EENT: No scleral icterus Respiratory: No respiratory distress, No accessory muscle use Neck: full range of motion, supple Extremities: No inflammation, No swelling Skin: No erythema Neuro/Psych: alert, normal mood/affect, oriented x 3, No confused - Time Spent With Patient Time Spent with Patient: greater than 25 minutes Time Spent with Patient: Greater than 25 minutes spent on this patients care, greater than 50% of time spent counseling, educating, and coordinating care regarding the above mentioned plan. ICD10 Worksheet Patient Problems: Problems Problem Status Onset Ureterolithiasis Acute Urinary tract infection Acute
--- NOTE | 2018-09-22 17:38 | ASMTCMCOM ---
CM Note CM Note Notes: Pt Discussed in Rounds. Pt has a sore throat and Antibiotic changed to PO Levaquin Pt will likely discharge tomorrow when medically cleared. CM available for needs. PLAN: Home independently Date Signed: 09/22/2018 05:38 PM Electronically Signed By:Marilou Sunshine
[2018-09-22] MEDS: TAMSULOSIN HCL 0.4 MG CAP PO SCH (20:14)
[2018-09-23 04:41] LABS: PLATELET COUNT 124 10^3/uL (150-400)
[2018-09-23 07:16] VITALS: BP 151/79
--- NOTE | 2018-09-23 09:43 | PCMIDPN ---
Assessment/Plan: Assessment: 83-year-old man with Pseudomonas aeruginosa pyelonephritis complicating multiple nephrolith the sees status post extraction. No discernible side effect from levofloxacin. His return to essentially his baseline health. He will follow up with infectious disease as an outpatient to ensure no relapse of urinary symptoms. 1. Pancytopenia, possible side effect of piperacillin/tazobactam; stable 2. Pyelonephritis, secondary to Pseudomonas aeruginosa; improved 3. Status post removal left-sided ureteral stones 09/19/2018 4. BPH 5. Status post removal of right-sided kidney stones in [place] July 2018 6. Acute kidney injury, likely postprocedural; improving Plan: 1. Continue levofloxacin 500 mg p.o. Daily; last dose will be 09/26 2. Reviewed in detail potential side effects of levofloxacin to include: allergy , rash, nausea, antibiotic-associated diarrhea, Clostridioides difficile colitis , tendinopathy (particularly Achilles' tendon), retinopathy, and the quinolone syndrome. 3. ID clinic follow up set for 5.8 at 1100 Calvin Echavarria MD Infectious Diseases 09/23/18 09:41 Subjective: No fever or chills in the past 24-hours. Tolerating oral diet with solids and liquids. No nausea. Having loose bowel movements that are not different than before the transition to levofloxacin. No rash. Appetite normal Ambulating without difficulty. Essentially back to baseline health. Objective: Vital Signs Temp Pulse Resp BP Pulse Ox 36.6 C 72 14 151/79 H 95 09/23/18 07:14 09/23/18 07:14 09/23/18 07:14 09/23/18 07:14 09/23/18 07:14 Laboratory Results 09/23/18 03:50 09/22/18 04:32 09/22/18 09/23/18 09/24/18 05:59 05:59 05:59 Intake Total 3608 1200 450 Output Total 1150 600 Balance 2458 600 450 Medications Generic Name Dose Route Start Last Admin Trade Name Freq PRN Reason Stop Dose Admin Levofloxacin 500 mg 09/23/18 10:00 Levaquin PO 09/26/18 23:59 DAILY AT 10AM MOLLY Protocol Microbiology 09/18/18 06:10 Urine,Clean Catch Urine Culture - Final Pseudomonas Aeruginosa 09/19/18 18:10 Blood Blood Culture - Preliminary 09/19/18 17:45 Blood Blood Culture - Preliminary Laboratory Tests 09/21/18 09/22/18 09/22/18 04:10 04:32 04:32 WBC 3.91 2.73 L Hgb 8.0 L 7.5 L Plt Count 112 L 111 L Absolute Neuts (auto) Absolute Eos (auto) Creatinine 1.3 09/23/18 03:50 WBC 2.33 L Hgb 7.3 L Plt Count 124 L Absolute Neuts (auto) 1.43 L Absolute Eos (auto) 0.07 Creatinine Ongoing monitoring for antimicrobial toxicity with: CBC, BMP, interval historical information, and interval physical exam. - Physical Exam General Appearance: no apparent distress, non-toxic EENT: No scleral icterus Respiratory: No respiratory distress, No accessory muscle use Neck: full range of motion, supple Extremities: No inflammation, No swelling Skin: No erythema Neuro/Psych: alert, normal mood/affect, oriented x 3, No confused ICD10 Worksheet Patient Problems: Problems Problem Status Onset Ureterolithiasis Acute Urinary tract infection Acute
--- NOTE | 2018-09-23 09:44 | PDIAF ---
- Diagnosis Code Status: Full Code - Medication Management Care Home Antibiotics: levofloxacin 500mg PO daily [facility] Antibiotic Stop Date: 09/26/18 Discharge Medications: electronically signed and located in the Home Medication List. PICC Care - Routine: N/A - Follow Up Care Current Providers and Referrals: Audelia Francisco MD [Medical Doctor] - As per Instructions Rayna Grijalva MD [Primary Care Provider] - As per Instructions Calvin Echavarria MD [Medical Doctor] - 10/02/18 11:00 am
[2018-09-23] MEDS: CHOLECALCIFEROL VIT D3 1,000 UNITS TAB PO SCH (10:08)
[2018-09-23] MEDS: FINASTERIDE 5 MG TAB PO SCH (10:08)
[2018-09-23] MEDS: PRAVASTATIN SODIUM 20 MG TAB PO SCH (10:08)
[2018-09-23] MEDS: ASCORBIC ACID 500 MG TAB PO SCH (10:08)
[2018-09-23] MEDS: CYANO/VITAMIN B12 1000 MCG TAB PO SCH (10:08)
--- NOTE | 2018-09-24 04:12 | GDS ---
[f rep st] DISCHARGE SUMMARY DISCHARGE DIAGNOSES: 1. Ureteral stone status post lithotripsy and stent. 2. Pseudomonas pyelonephritis. 3. Acute renal failure. 4. Pancytopenia. 5. Acute metabolic encephalopathy. HISTORY: The patient is an 83-year-old male, who recently had right-sided kidney stones treated by brice damon in [place] when they were vacationing in [facility]. He also had a UTI at that time and was given antibiotics. At that time, he was found to have kidney stones on the left side, but they did not warrant intervention. On the day of presentation, he developed crampy left-sided flank pain, now showing the left-sided ureteral stones were causing renal obstruction with hydronephrosis. He was seen in consultation with Infectious Disease and Urology. Urine culture grew Pseudomonas. He underwent lithotripsy and stent placement with Dr. Willingham. He was treated with IV Zosyn, but develo ped the pancytopenia which was concerning for a side effect of the Zosyn. He will instead be dischar ged on oral Levaquin which is to be continued through September 26. He should have a repeat CBC as an outpa tient to ensure his pancytopenia resolves. He does follow with Dr. Rodriguez closely for long-standing h istory of anemia. DISCHARGE MEDICATIONS: Please see computerized record for full detailed list. New medications: Lev aquin 500 mg p.o. daily through September 26. ADDITIONAL DISCHARGE INSTRUCTIONS: 1. Follow up with Urology in 3 weeks for stent removal. 2. Repeat CBC in 2 weeks and set with subsequent followup with Dr. Rodriguez at [facility]. Greater than 30 minutes' time spent arranging this discharge. Patient was seen and examined by me on the day of discharge. /[id number]/[id number]
== END 2018-09-23 10:36 | disposition home or self-care (01) | DRG 659 ==
LOC: F1N 09:40 → OBSVTOIN 09-19 16:14
PROVIDERS: ADMIT Internal Medicine; ATTEND Student in an Organized Health Care Education/Training Program
DX: N13.6 Pyonephrosis (principal); G93.41 Metabolic encephalopathy; D61.811 Other drug-induced pancytopenia; T36.0X5A Adverse effect of penicillins, initial encounter; N17.9 Acute kidney failure, unspecified; N10 Acute pyelonephritis; E86.9 Volume depletion, unspecified; B96.5 Pseudomonas (aeruginosa) (mallei) (pseudomallei) as the cause of diseases classified elsewhere; E78.5 Hyperlipidemia, unspecified; N40.1 Benign prostatic hyperplasia with lower urinary tract symptoms
CPT/HCPCS: 82365-90; 82607-90; 96374; 97116-GP; 97161-GP; C1726; C1758; C1769; C2625; G0378; J0696; J1170; J1885; J2405; J2543; J2704; J3010; Q9967

== ENCOUNTER → 2018-11-06 | Outpatient (CLI) | payer OTHER | LOC: FIMAGING 08:15 ==